=== PATIENT | male | born 1955 | race Caucasian/White ===

== ENCOUNTER 2021-04-18 20:41 | Emergency (ER) | payer OTHER ==
[2021-04-18 23:14] LABS: BASOPHIL 0.2 % (0-2); EOSINOPHIL 0 % (0-5); HCT 43.6 % (42.0-52.0); LYMPHOCYTE 14.2 % (15-48); MCH 30.1 pg (25.0-31.0); MCHC 34.4 g/dL (32.0-36.0); MCV 87.6 fL (78.0-100.0); MPV 9.7 fL (6.0-9.5); NEUTROPHIL 79.5 % (41-80); NRBC 0; PLT 151 K/uL (150-400); RBC 4.98 M/uL (4.70-6.00); RDW 13.4 % (11.5-14.0); WBC 6.5 K/uL (4.0-10.5)
[2021-04-18 23:30] LABS: BUN/CREAT RATIO (CALC) 21.4 RATIO; CREATININE 0.7 mg/dL (0.67-1.17); POTASSIUM 3.7 mmol/L (3.5-5.1)
[2021-04-19] MEDS ORDERED: VIBRAMYCIN100 MG PO (04:56)
[2021-04-19] MEDS ORDERED: ONDANSETRON ODT4 MG PO (04:56)
== END 2021-04-19 05:30 | disposition home or self-care (01) ==
LOC: FER 20:41
PROVIDERS: Emergency Medicine
DX: U07.1 COVID-19 (principal); I10 Essential (primary) hypertension; E11.9 Type 2 diabetes mellitus without complications; Z88.1 Allergy status to other antibiotic agents
CPT/HCPCS: 36415; 71045; 71275; 80048; 83880; 84484; 85025; 93005; J2930; M0243; Q0244; Q9967